=== PATIENT | female | born 1945 | race Caucasian/White ===

== ENCOUNTER 2021-07-22 12:14 | Emergency (ER) | payer MEDICARE, SELFPAY ==
--- NOTE | 2021-07-22 12:17 | ED.SKABFB ---
HPI - Skin/Abscess/Foreign Bdy General Chief complaint: Extremity Injury, Upper Stated complaint: Possible left in Stitch needs removing Time Seen by Provider: 07/22/21 12:17 Source: patient and RN notes reviewed History of Present Illness HPI narrative: Patient is a 76-year-old female who presents the urgent care with complaints of a possible suture to the posterior left shoulder . Patient states that she had a left shoulder surgery at least 1 year ago and has felt a painful area on the back of her shoulder. Patient states that it is also been there for at least a year but is became painful over the last few days. Patient denies of any other acute complaints. No acute distress noted. Patient aware of the plan of care. Some parts of this dictation were generated by voice recognition software and may contain typographical and/or grammatical inaccuracies. Related Data Home Medications Medication Instructions Recorded Confirmed furosemide 20 mg PO DAILY 12/14/19 12/14/19 losartan 50 mg PO DAILY 12/14/19 12/14/19 simvastatin 20 mg PO DAILY 12/14/19 12/14/19 amlodipine 10 mg PO DAILY 07/22/21 07/22/21 hydralazine 10 mg PO TID 07/22/21 07/22/21 Allergies Allergy/AdvReac Type Severity Reaction Status Date / Time No Known Allergies Allergy Verified 07/22/21 12:33 Review of Systems Review of Systems: CONSTITUTIONAL: Denies fever, chills, or sweats. EYES: Denies visual changes, redness, or discharge. ENT: Denies rhinorrhea, congestion, sore throat, or otalgia. CARDIOVASCULAR: Denies chest pain, palpitations, or edema. RESPIRATORY: Denies cough or dyspnea. GASTROINTESTINAL: Denies abdominal pain, nausea, vomiting, or diarrhea. GENITOURINARY: Denies dysuria or hematuria. SKIN: Reports of a possible suture to the posterior left shoulder MUSCULOSKELETAL: Denies back pain, joint pain, or myalgia. NEUROLOGIC: Denies headache, numbness, or weakness. All other systems reviewed are negative, except as documented in HPI. PMFSH Comments At the time of my signature, I reviewed and agree with the nursing past medical, surgical, social, and family history. There is no relevant family history pertinent to the patient complaint. Exam Narrative: GENERAL: This is a well-nourished, well-developed patient, in no apparent distress. HEAD: normocephalic, atraumatic. EYES: PERRL. Sclera clear/white. Vision is grossly intact. EARS: External ears normal NOSE: External nose normal with no obvious nasal discharge, nares without redness, no rhinorrhea. THROAT: Mucous membranes moist NECK: Neck supple CARDIOVASCULAR: Regular rate and rhythm without murmurs, gallops, or rubs. RESPIRATORY: Clear to auscultation. Breath sounds equal bilaterally. No wheezes, rales, or rhonchi. SKIN: 0.25 cm keratosis to the posterior left shoulder. No foreign body noted. Warm, intact with no suspicious lesions or rash, good texture and turgor. NEURO: awake, alert, and oriented to person, place and time. There were no obvious focal neurologic abnormalities. EXTREMITIES: No clubbing, cyanosis, or edema. Course Vital Signs Vital signs: Vital Signs Temperature 98.2 F 07/22/21 12:20 Pulse Rate 73 07/22/21 12:20 Respiratory Rate 20 07/22/21 12:20 Blood Pressure 170/89 H 07/22/21 12:20 Pulse Oximetry 99 07/22/21 12:20 Temperature 98.2 F 07/22/21 12:44 Pulse Rate 73 07/22/21 12:44 Respiratory Rate 20 07/22/21 12:44 Blood Pressure 170/89 H 07/22/21 12:44 Pulse Oximetry 99 07/22/21 12:44 Reviewed-patient is informed that they may have pre-hypertension or hypertension based on a blood pressure reading in the department. I recommend the patient call the primary care provider listed on their discharge instructions or a physician of their choice this week to arrange follow-up for further evaluation of possible pre-hypertension or hypertension. MDM - Skin/Abscess/Foreign Bdy MDM Narrative Medical decision making narrative: Patient is aware
[2021-07-22 12:20] VITALS: BP 170/89; PULSE 73; RESP 20; TEMP 36.8; O2SAT 99
[2021-07-22 12:44] VITALS: BP 170/89; PULSE 73; RESP 20; TEMP 36.8; O2SAT 99
== END 2021-07-22 12:50 | disposition home or self-care (01) ==
PROVIDERS: Emergency Provider Nurse Practitioner Family; PCP Family Medicine
DX: L57.0 Actinic keratosis (principal); E78.00 Pure hypercholesterolemia, unspecified; I10 Essential (primary) hypertension; M19.90 Unspecified osteoarthritis, unspecified site; Z90.12 Acquired absence of left breast and nipple
CPT/HCPCS: 99211; G0463